=== PATIENT | female | born 1975 | race Caucasian/White ===

== ENCOUNTER 2019-06-23 19:56 | Emergency (ER) | payer MEDICAID ==
[~2019-06-23] VITALS: Ht 162.6 cm; Wt 100.0 kg
--- NOTE | 2019-06-23 21:24 | NUR ---
PATIENT IN BED GETTING LABS DRAWN, PATIENT OBSERVALEY JOKING/LAUGHING WITH DESIGNATED BROKER NO OBSERVABLE S/S OF ACUTE STRESS AT THIS TIME WILL CONTINUE TO MONITOR
[2019-06-23 21:42] LABS: BASOPHILS # (AUTO) 0.1 X10'3 (0-0.2); BASOPHILS % (AUTO) 0.9 % (0-1); EOSINOPHILS # (AUTO) 0.5 X10'3 (0-0.9); EOSINOPHILS % (AUTO) 4.9 % (0-6); HEMATOCRIT 40.7 % (35.0-45.0); HEMOGLOBIN 14.1 g/dl (12.0-16.0); LYMPHOCYTES # (AUTO) 3.6 X10'3 (1.1-4.8); LYMPHOCYTES % (AUTO) 32.8 % (21-51); MEAN CORPUSCULAR HGB CONC 34.8 g/dL (33.0-36.5); MEAN CORPUSCULAR VOLUME 89.1 FL (78-98); MEAN PLATELET VOLUME 8.7 FL (7.4-10.4); MONOCYTES # (AUTO) 0.8 X10'3 (0-0.9); MONOCYTES % (AUTO) 7.3 % (2-12); NEUTROPHILS # (AUTO) 5.9 X10'3 (1.8-7.7); NEUTROPHILS % (AUTO) 54.1 % (42-75); PLATELET COUNT 265 X10'3 (140-440); RED BLOOD COUNT 4.56 X10'6 (4.20-5.60); RED CELL DISTRIBUTION WIDTH 13.2 % (11.5-14.5); WHITE BLOOD COUNT 10.9 X10'3 (4.5-11.0)
[2019-06-23 21:52] LABS: ALANINE AMINOTRANSFERASE 19 U/L (12-78); ALBUMIN 3.4 G/DL (3.4-5.0); ALBUMIN/GLOBULIN RATIO 0.8 (1.1-1.5); ALKALINE PHOSPHATASE 94 IU/L (46-116); ANION GAP 11 (8-16); ASPARTATE AMINO TRANSFERASE 9 U/L (10-37); BILIRUBIN,TOTAL 0.2 MG/DL (0.1-1.0); BLOOD UREA NITROGEN 18 MG/DL (7-18); CALCIUM 9.4 MG/DL (8.5-10.1); CHLORIDE 102 MMOL/L (99-107); GLUCOSE 97 MG/DL (70-104); MAGNESIUM 1.9 MG/DL (1.5-2.4); SODIUM 138 MMOL/L (135-145); TOTAL CARBON DIOXIDE 24.7 MMOL/L (24-32); TOTAL PROTEIN 7.6 G/DL (6.4-8.2); eGFR 68 ML/MIN
[2019-06-23 22:20] LABS: VALPROATE 49 UG/ML (50-100)
[2019-06-23 22:38] VITALS: BP 129/68
== END 2019-06-23 22:41 | disposition home or self-care (01) ==
LOC: ER 19:58
DX: R20.0 Anesthesia of skin (principal); R20.2 Paresthesia of skin; G43.909 Migraine, unspecified, not intractable, without status migrainosus; G62.9 Polyneuropathy, unspecified; F17.200 Nicotine dependence, unspecified, uncomplicated; F15.90 Other stimulant use, unspecified, uncomplicated; Z86.69 Personal history of other diseases of the nervous system and sense organs; Z88.2 Allergy status to sulfonamides; Z88.8 Allergy status to other drugs, medicaments and biological substances
CPT/HCPCS: 36415; 80053; 80164; 83735; 85025; 99284

== ENCOUNTER 2019-07-09 15:35 | Emergency (ER) | payer MEDICAID ==
[~2019-07-09] VITALS: Ht 163.8 cm; Wt 93.3 kg
[2019-07-09] MEDS ORDERED: dexamethasone sod phosphate 10mg/ml inj IM STA (17:06)
[2019-07-09] MEDS ORDERED: LIDOcaine Viscous 15ml cup MM ONE (17:10)
[2019-07-09] MEDS ORDERED: amox tr/potassium clavulanate 500mg/125mg TAB PO ONE (17:10)
[2019-07-09] MEDS ORDERED: acetaminophen 325mg tablet PO ONE (17:10)
[2019-07-09] MEDS ORDERED: ondansetron 4mg rapidly disintigrating tab PO ONE (17:10)
[2019-07-09] MEDS ORDERED: ibuprofen tablet 400 MG TABLET PO ONE (17:10)
[2019-07-09] MEDS ORDERED: AMOX-115 PO (17:41)
[2019-07-09 18:35] VITALS: BP 105/70
== END 2019-07-09 18:38 | disposition home or self-care (01) ==
LOC: ER 15:36
DX: J03.90 Acute tonsillitis, unspecified (principal); G43.909 Migraine, unspecified, not intractable, without status migrainosus; G62.9 Polyneuropathy, unspecified; F15.90 Other stimulant use, unspecified, uncomplicated; Z88.2 Allergy status to sulfonamides; Z88.8 Allergy status to other drugs, medicaments and biological substances; Z79.899 Other long term (current) drug therapy
CPT/HCPCS: 42700; 99284; J1100; 96372

== ENCOUNTER 2019-07-20 15:38 | Emergency (ER) | payer MEDICAID ==
[~2019-07-20] VITALS: Ht 162.6 cm; Wt 92.2 kg
[~2019-07-20 15:38] MED LIST: AMOX-115 PO
[2019-07-20] MEDS ORDERED: divalproex sodium 250mg tablet PO ONE (16:25)
--- NOTE | 2019-07-20 16:34 | NUR ---
DUE TO SWELLING OF HER HANDS, PT REQUESTED THAT THE RING ON HER LT 4TH FINGER BE CUT OFF. RING WAS CUT OFF WITHOUT COMPLICATIONS AND PT STATES THAT HER HAND FEELS BETTER
[2019-07-20] MEDS ORDERED: DIVA500T9 PO (18:46)
[2019-07-20] MEDS ORDERED: LORazepam 1 MG tablet PO ONE (18:50)
[2019-07-20 19:53] VITALS: BP 164/93
== END 2019-07-20 19:55 | disposition home or self-care (01) ==
LOC: ER 15:39
DX: R56.9 Unspecified convulsions (principal); R06.02 Shortness of breath; R53.1 Weakness; G43.909 Migraine, unspecified, not intractable, without status migrainosus; G62.9 Polyneuropathy, unspecified; F15.90 Other stimulant use, unspecified, uncomplicated; Z76.0 Encounter for issue of repeat prescription; Z88.2 Allergy status to sulfonamides; Z88.8 Allergy status to other drugs, medicaments and biological substances; Z79.899 Other long term (current) drug therapy
CPT/HCPCS: 99283